=== PATIENT | female | born 1995 | race Caucasian/White ===

== ENCOUNTER 2017-01-12 20:43 | Emergency (ER) | payer OTHER ==
[2017-01-12] MEDS ORDERED: Benzonatate 100 MG CAP ONE (21:05)
[2017-01-12] MEDS ORDERED: Acetaminophen/Codeine 30-300mg Tablet ONE (21:05)
[2017-01-12] MEDS ORDERED: AMOXicillin 250 MG CAP ONE (21:05)
== END 2017-01-12 21:12 | disposition home or self-care (01) ==
LOC: MADERS 20:43
DX: J20.9 Acute bronchitis, unspecified (principal); F32.9 Major depressive disorder, single episode, unspecified
CPT/HCPCS: 99283

== ENCOUNTER 2017-06-26 17:42 | Emergency (ER) | payer OTHER ==
[2017-06-26] MEDS ORDERED: Naproxen 500 MG TAB ONE (18:15)
[2017-06-26] MEDS ORDERED: Acetaminophen/Codeine 30-300mg Tablet ONE (18:15)
== END 2017-06-26 18:20 | disposition home or self-care (01) ==
LOC: MADERS 17:42
DX: H15.89 Other disorders of sclera (principal); F32.9 Major depressive disorder, single episode, unspecified
CPT/HCPCS: 99283

== ENCOUNTER 2018-11-03 08:50 | Emergency (ER) | payer OTHER, SELFPAY | END 2018-11-03 09:19 | disposition home or self-care (01) | LOC: MADERS 08:50 | DX: J02.0 Streptococcal pharyngitis (principal); F32.9 Major depressive disorder, single episode, unspecified | CPT/HCPCS: 99282 ==

== ENCOUNTER 2019-05-06 18:56 | Emergency (ER) | payer SELFPAY | END 2019-05-06 19:16 | disposition home or self-care (01) | LOC: MADERS 18:56 | DX: J06.9 Acute upper respiratory infection, unspecified (principal); F32.9 Major depressive disorder, single episode, unspecified | CPT/HCPCS: 99281 ==

== ENCOUNTER 2021-07-14 13:09 | Emergency (ER) | payer BC, SELFPAY | END 2021-07-14 14:04 | disposition home or self-care (01) | LOC: MADERS 13:09 | DX: K08.89 Other specified disorders of teeth and supporting structures (principal); K05.319 Chronic periodontitis, localized, unspecified severity; J45.909 Unspecified asthma, uncomplicated | CPT/HCPCS: 99283 ==

== ENCOUNTER 2021-09-11 19:52 | Emergency (ER) | payer SELFPAY ==
[2021-09-11 20:46] LABS: Bilirubin Negative (Negative); Blood, Urine Small (Negative); Clarity Hazy (Clear); Glucose, Urine (Dipstick) Negative (Negative); Ketone, Urine Negative (Negative); Leukocyte Trace (Negative); Nitrite Negative (Negative); Protein, Urine (Dipstick) Negative (Neg-Trace); Urobilinogen 0.2 mg/dL (Less than 2)
[2021-09-11 20:56] LABS: Bacteria/HPF 2+ HPF (None Seen)
[2021-09-11 21:43] LABS: Pregnancy Test - Urine (BHCG) Negative (Negative); Pregu Control Background? CLEAR/WHITE (CLR/WHITE); Pregu Control Bar Appear? YES (CONTROL BAR); Specific Gravity 1.007 (1.002-1.036)
[2021-09-11] MEDS ORDERED: Cephalexin 500 MG CAP ONE (21:57)
== END 2021-09-11 22:03 | disposition home or self-care (01) ==
LOC: MADERS 19:52
DX: N30.00 Acute cystitis without hematuria (principal); J45.909 Unspecified asthma, uncomplicated
CPT/HCPCS: 81003; 81015; 81025; 87086; 99283

== ENCOUNTER 2022-10-01 09:39 | Emergency (ER) | payer SELFPAY ==
[2022-10-01] MEDS ORDERED: Penicillin V Potassium 250 MG TAB ONE (10:09)
[2022-10-01] MEDS ORDERED: Ibuprofen 800 MG TAB ONE (10:09)
== END 2022-10-01 10:18 | disposition home or self-care (01) ==
LOC: MADERS 09:39
DX: K04.7 Periapical abscess without sinus (principal); L03.211 Cellulitis of face; J45.909 Unspecified asthma, uncomplicated
CPT/HCPCS: 99283